=== PATIENT | male | born 1960 | race Two or more races ===

== ENCOUNTER 2025-04-16 14:28 | Outpatient (CLI) | payer OTHER | END 2025-04-19 17:00 | disposition home or self-care (01) | LOC: LAB 14:28 | PROVIDERS: ATTEND Licensed Practical Nurse | DX: Z12.11 Encounter for screening for malignant neoplasm of colon (principal) | CPT/HCPCS: 82274 ==

== ENCOUNTER 2025-04-27 08:52 | Outpatient (CLI) | payer OTHER ==
[2025-04-27 10:02] LABS: Hematocrit 45.8 % (41.0-53.0); Hemoglobin 15.9 g/dL (13.5-17.5); Mean Corpuscular Hemoglobin 28.6 pg (28.0-32.0); Mean Corpuscular Volume 82.4 fL (80.0-100.0); Nucleated Red Blood Cells % 0.5 %
[2025-04-27 10:25] LABS: Prostate Specific Antigen 11.75 ng/mL (0.0-4.0)
[2025-04-27 10:26] LABS: Alanine Aminotransferase 12 U/L (7-40); Alkaline Phosphatase 110 U/L (46-116); Anion Gap 9 (5-15); BUN/Creatinine Ratio 11.7 (10.0-20.0); Blood Urea Nitrogen 15 mg/dL (9-23); Calcium 10.2 mg/dL (8.7-10.4); Chloride 98 mmol/L (98-107); Potassium 3.9 mmol/L (3.5-5.1); Sodium 139 mmol/L (136-145); Total Protein 7.5 g/dL (5.7-8.2)
[2025-04-27 10:27] LABS: Albumin 4.7 g/dL (3.2-4.8); Bilirubin, Total 1.2 mg/dL (0.2-1.0); Cholesterol 158 mg/dL (< 200)
[2025-04-27 10:28] LABS: Carbon Dioxide 32 mmol/L (20-31); Glucose 110 mg/dL (74-106); HDL Cholesterol 31 mg/dL (40-59); Triglycerides 153 mg/dL (< 150)
[2025-04-27 10:29] LABS: Ferritin 437.4 ng/mL (22-322)
[2025-04-28 11:32] LABS: Hepatitis A Total Antibody Negative (Negative); Hepatitis B Surface Antigen Negative (Negative); Hepatitis C Antibody Negative (Negative)
== END 2025-04-27 17:00 | disposition home or self-care (01) ==
LOC: LAB 08:52
PROVIDERS: ATTEND Licensed Practical Nurse
DX: R97.20 Elevated prostate specific antigen [PSA] (principal); I10 Essential (primary) hypertension; E78.5 Hyperlipidemia, unspecified; E55.9 Vitamin D deficiency, unspecified; R53.0 Neoplastic (malignant) related fatigue; Z13.29 Encounter for screening for other suspected endocrine disorder; Z13.220 Encounter for screening for lipoid disorders; Z13.1 Encounter for screening for diabetes mellitus; Z00.01 Encounter for general adult medical examination with abnormal findings
CPT/HCPCS: 36415; 80053; 80061; 82043; 82306; 82728; 83036; 84153; 84443; 85025; 86704; 86706; 86708; 86803; 87340